=== PATIENT | male | born 1970 | race Caucasian/White ===

== ENCOUNTER 2020-12-12 20:40 | Emergency (ER) | payer OTHER ==
[2020-12-12 21:07] VITALS: BP 129/87; PULSE 90; TEMP 98.2; BMI 37.6
== END 2020-12-13 00:39 | disposition home or self-care (01) ==
LOC: JERFT 20:40
DX: M79.605 Pain in left leg (principal)
CPT/HCPCS: 93971-TC; 99284-25

== ENCOUNTER 2021-09-18 03:14 | Emergency (ER) | payer OTHER ==
[2021-09-18 03:54] VITALS: BP 138/93; PULSE 91; TEMP 99.9; BMI 39.2
== END 2021-09-18 06:29 | disposition home or self-care (01) ==
LOC: JER 03:14
DX: B34.9 Viral infection, unspecified (principal)
CPT/HCPCS: 0241U-QW; 99283-25

== ENCOUNTER 2021-11-02 19:22 | Emergency (ER) | payer OTHER ==
[2021-11-02 19:26] VITALS: BP 151/100; PULSE 86; RESP 18; TEMP 97.8; BMI 39.3
== END 2021-11-02 23:06 | disposition home or self-care (01) ==
LOC: JERFT 19:22
DX: H57.11 Ocular pain, right eye (principal)
CPT/HCPCS: 70450-TC; 76512; 99284-25